=== PATIENT | female | born 1945 | race Caucasian/White ===

== ENCOUNTER 2018-03-21 04:36 | Inpatient (IN) ==
[2018-03-31] MEDS ORDERED: Acetaminophen 325 MG Tablet PO PRN (07:33)
[2018-03-31] MEDS ORDERED: Aluminum/Magnesium/Simethacone Susp 30 ML UDC PO PRN (07:35)
[2018-03-31] MEDS ORDERED: LORazepam 1 MG Tablet PO PRN (07:41)
[2018-03-31] MEDS: Lisinopril 5 MG Tablet PO SCH (09:20)
[2018-03-31] MEDS: Atenolol 25 MG Tablet PO SCH (09:20)
[2018-03-31] MEDS: predniSONE 20 MG Tablet PO SCH (09:20)
--- NOTE | 2018-03-31 17:05 | P.PNPSY ---
Subjective Remarks: Patient was seen and case discussed with nursing. Patient is frustrated with the various activities of the staff here. Per nursing, she was quite entitled this morning yelling at the staff of her minutia. She is eating well and makes an attempt to interact with others during dinner. She remains depressed but denies suicidal or homicidal ideation intent or plan Mental Status Examination Appearance: Appropriate Consciousness: Alert Orientation: x4 Motor Activity: Normal gait Speech: Unremarkable Language: Adequate Fund of Knowledge: Adequate Attention and Concentration: Adequate Memory: Unremarkable Mood: Sad, Irritable Affect: Appropriate Thought Process & Associations: Intact Thought Content: Appropriate Hallucination Type: None Delusion Type: None Suicidal Ideation: No Suicidal Plan: No Suicidal Intention: No Homicidal Ideation: No Homicidal Plan: No Homicidal Intention: No Insight: Poor Judgment: Poor Assessment and Plan - Assessment (1) Adjustment disorder with depressed mood Code(s): F43.21 - Adjustment disorder with depressed mood Status: Acute - Plan Plan: Estimated LOS: [] days Continue current treatment plan Justification for Continued Inpatient Stay: Patient would decompensate in a less restrictive setting
[2018-03-31] MEDS ORDERED: Mirtazapine 15 MG Tablet PO SCH (21:00)
[2018-04-01] MEDS: Lisinopril 5 MG Tablet PO SCH (08:20)
[2018-04-01] MEDS: predniSONE 20 MG Tablet PO SCH (08:21)
[2018-04-01] MEDS: Atenolol 25 MG Tablet PO SCH (08:21)
[2018-04-01 11:07] LABS: ABG Base Excess 2.4 mmol/L (-2-2); ABG PCO2 40 mmHg (38-42); ABG PO2 41 mmHG (61-120)
--- NOTE | 2018-04-01 21:52 | P.DSPSY ---
Psychiatry Discharge Summary Inpatient Psychiatric care?: Yes Advance Directives: No Mental Health Advance Directive: No Health Care Proxy: No - Admission Admission Date: March 22, 2018 10:33 - Admission Diagnosis (1) Adjustment disorder with depressed mood Code(s): F43.21 - Adjustment disorder with depressed mood Brief History: The patient is a 72-year-old woman, domiciled alone in [facility], single , mother of 2 kids, with no prominent psychiatric history, no previous psychiatric hospitalizations, she reports a suicidal attempt a week ago by overdosing in the context of an argument with her daughter, medical history of COPD, stage IV lung cancer, who presents under a Nye act initiated by the [place] [employer]. According to her paperwork, "daughter stated Ms. Gonzalez had a knife and threatened to kill herself. Ms. gonzalez stated she wanted to herself and even mention doing as suicide by copper roller handler printing." Reportedly the patient was initially brought to [facility] but she was felt to be outside of their scope of care. The justification for transferring the patient was that the patient has COPD and uses oxygen at home and has a history of stage IV lung cancer last received chemotherapy 1 month ago. The patient disputes these facts. She reports that she does have a history of stage IV lung cancer but does not remember when her last chemotherapy was, it was much longer than 1 month ago. EMR was reviewed. The case was discussed with the ER team. On my psychiatric evaluation I find a patient that is quite irritable, but redirectable. The patient reports that she has been having thoughts of hanging herself or stabbing herself for about a week and now. She says that she has been having persistent and continues argument with her daughter "who does not give a sh... About me". The patient reports that she has been living alone for long time, with no friends, no family around, "I have been very sick, nobody really cares about me and is okay to me to kill myself". The patient reports continues depression, increase sensitivity to abandonment, frustration, rejection, mood swings, sense of hopelessness, helplessness, worthlessness, and suicidal ideation. She denies visual and auditory hallucinations. Her thought process is quite circumstantial, at some times tangential, she is oriented 3. No agitation or aggressive behavior reported in the ER. She also reports difficulty sleeping at night and poor appetite. Reports occasional use of marijuana, denies all other illegal drugs or alcohol. Tobacco Use In Past 30 Days: No How Often Do You Have a Drink Containing Alcohol: Never Hospital Course: Patient is a 72 y/o woman, single, has 2 children, no formal past psychiatric history, no previous psychiatric admissions, one previous suicide attempt via overdose a week ago, past mental history significant for COPD, stage IV lung cancer who was brought in under Nye act by police after patient had threatened to kill self with knife in the context of argument with daughter which patient was admitted to the inpatient psychiatry unit for further evaluation and management. Patient was admitted to a locked inpatient unit, appropriate precautions were in place throughout hospital stay. Patient was followed by primary medical team during admission. Patient was seen and examined on the unit by psychiatry and was started on mirtazapine and titrated up to 45 mg p.o. at bedtime for depressive symptoms. There was no evidence of any suicidality or homicidality on the inpatient. Patient's behavior improved with the benefit of psychopharmacological treatment. It was determined that discharge back to her [place] was not a safe disposition and unclear whether patient will require hospice services at this time and was awaiting consult with a hospice service that service her [facility] to evaluate patient. In the interim of finalizing appropriate disposition plan patient had a emergency response team activities as patient was having O2 sats in the 30s and had to be transferred to the medical service for further management for likely acute respiratory failure. Patient was discharged to the medical floor with plan to have patient return back to this service once medically stable and cleared. - Discharge Discharge Date: 04/01/18 - Discharge Diagnosis (1) Adjustment disorder with depressed mood Code(s): F43.21 - Adjustment disorder with depressed mood Status: Acute Discharge Disposition: Patient transferred to medical service - Discharge Instructions Discharge Diet: Heart Healthy Diet Activities You Can Perform: Weight Bearing As Tolerat - Discharge Time > 30 minutes Mental Status Examination Appearance: Appropriate Consciousness: Alert Orientation: x4 Motor Activity: Normal gait Speech: Unremarkable Language: Adequate Fund of Knowledge: Adequate Attention and Concentration: Adequate Memory: Unremarkable Mood: Sad Affect: Appropriate Thought Process & Associations: Intact Thought Content: Appropriate Hallucination Type: None Delusion Type: None Suicidal Ideation: No Suicidal Plan: No Suicidal Intention: No Homicidal Ideation: No Homicidal Plan: No Homicidal Intention: No Insight: Fair Judgment: Impulsive Discharge/Advance Care Plan - Results Vital Signs: Last Vital Signs Temp 98.6 F 04/01/18 06:48 Pulse 82 04/01/18 06:48 Resp 16 04/01/18 06:48 BP 150/70 H 04/01/18 09:52 Pulse Ox 69 L 04/01/18 11:00 Lab Results: Abnormal Lab Results 04/01/18 10:50 Puncture Site Right radial Patient Temperature 98.6 O2 Saturation 71 L* ABG pH 7.44 H ABG pCO2 40 ABG pO2 41 L* ABG HCO3 26 ABG O2 Content 11.4 L ABG Base Excess 2.4 H ABG Methemoglobin 1.1 Anthony Test Present Hemoglobin 11.5 L Carboxyhemoglobin 0.9 O2 Delivery Device Ra Inspired O2 21 Critical Value Yes Laboratory Results Hemoglobin A1c 5.1 % (4.3-6.0) 03/23/18 08:01 Triglycerides 111 MG/DL (42-150) 03/23/18 08:01 Cholesterol 149 MG/DL (120-200) 03/23/18 08:01 HDL Cholesterol 71.8 MG/DL (40.0-60.0) H 03/23/18 08:01 Summary of Procedures: None Pending Results: None - Medications Number of antipsychotic medications at discharge: 0 - Discharge Care Plan Goals to Promote Your Health: * To prevent worsening of your condition and complications * To maintain your health at the optimal level Directions to Meet Your Goals: Take your medications as prescribed Follow your dietary instruction Follow activity as directed Keep your appointments as scheduled Take your immunizations and boosters as scheduled If your symptoms worsen call your PCP, if no PCP go to Urgent Care Center or Emergency Room For 23/04 questions related to your inpatient stay or results of tests pending at discharge, please contact Dr. Malcolm Chaudhari MD at Smoking is Dangerous to Your Health. Avoid second hand smoking
== END 2018-04-01 11:20 | disposition short-term general hospital (02) ==
LOC: H250 03-22 10:33 → HIMC 04-01 11:20
PROVIDERS: ADMIT Student in an Organized Health Care Education/Training Program; ATTEND Student in an Organized Health Care Education/Training Program

== ENCOUNTER 2018-04-01 11:22 | Inpatient (IN) ==
[2018-04-04 04:48] VITALS: TEMP 99.1
[2018-04-04 11:04] VITALS: RESP 16
[2018-04-04 17:31] VITALS: BP 141/68; O2SAT 100
[2018-04-04 18:24] VITALS: PULSE 90
== END 2018-04-04 20:00 ==
LOC: HIMC 11:30
PROVIDERS: ADMIT Internal Medicine Critical Care Medicine; ATTEND Internal Medicine Critical Care Medicine

== ENCOUNTER 2018-04-04 20:05 | Inpatient (IN) ==
[2018-04-04] MEDS ORDERED: Aluminum/Magnesium/Simethacone Susp 30 ML UDC PO PRN (20:26)
[2018-04-05 08:42] LABS: Calcium 8.8 mg/dL (8.5-10.1); Carbon Dioxide 20.9 meq/L (21.0-32.0)
[2018-04-05 08:47] LABS: Chol/HDL Ratio 2.91 Ratio
[2018-04-05] MEDS ORDERED: Non-Formulary Drug (Lisinopril [Lisinopril] 2.5 MG) PO SCH (09:00)
[2018-04-05] MEDS ORDERED: Lisinopril 5 MG Tablet PO SCH (09:00)
[2018-04-05] MEDS ORDERED: Atenolol 25 MG Tablet PO SCH (09:00)
[2018-04-05] MEDS ORDERED: Potassium Bicarbonate 25 MEQ Effervescent Tablet PO ONE (09:03)
[2018-04-05] MEDS ORDERED: Potassium Chlor 20 mEq Premix 20 MEQ/100 ML PIGGYBACK IV.SIG SCH (09:34)
[2018-04-05] MEDS ORDERED: Sod Chloride 0.9% Inj 1,000 ML IV.CONT SCH (09:54)
[2018-04-05] MEDS ORDERED: Piperacil/Tazo 4.5 GM Premix 4.5 GM/100 ML BAG IV.SIG SCH (10:00)
--- NOTE | 2018-04-05 10:26 | P.CON ---
History of Present Illness Service: Hospitalist services Consult date: 04/05/18 Primary Care Provider: No Primary Care Physician History of Present Illness: Written by Hellen Lepe, acting as scribe for Dr. Douglass on 04/05/18 at 9: 56 This is a 72-year-old female with past medical history significant for coronary artery disease, COPD, hypertension, dyslipidemia, osteoarthritis and stage IV small cell lung cancer, last chemotherapy treatment approximately 1 month ago who was admitted to inpatient psychiatry recent suicidal ideations. On 04/01/18, [facility] was called and the patient was found to be cyanotic with O2 sats at 30% . Patient was admitted to critical care service was emergently intubated. After intubation, CODE BLUE 5 minutes with return to spontaneous circulation. She was treated with levofed for pressor support for borderline blood pressures. On 04/03/18, she was able to be weaned off the vasopressors and was extubated. Patient was started on IV Zosyn and vancomycin for concern for possible aspiration pneumonia after failing the bedside swallow evaluation. Patient was evaluated by speech therapy who recommended pured diet with thin liquids. On 04/02, CXR showed lungs are clear with interval resolution of right lower lung infiltrate. She underwent echocardiogram revealing EF 60-65%, moderate to severe pulmonary hypertension and a small loculated pericardial effusion without pretamponade physiology. Patient was admitted to inpatient med psych on 04/04/2018 and hospitalist services have been consulted to assist with ongoing medical management. Patient seen and examined. Patient complains of shortness of breath. She also reports cough with whitish sputum production. She denies any fever or chills. She has complaints of chest pain. She denies any nausea, vomiting or abdominal pain. She denies any diarrhea or constipation. Review of Systems All other systems reviewed negative except as stated in HPI PMFSH - History History Provided By: Patient - Medical History Medical History: Medical History (Last Reviewed 04/04/18 @ 10:50 by Earline Tompkins) Rheumatoid arthritis (Acute) High cholesterol (Acute) Hypertension (Acute) Coronary artery disease (Acute) Lung cancer (Acute) COPD (chronic obstructive pulmonary disease) (Acute) - Surgical History Surgical History: Surgical History (Last Reviewed 04/04/18 @ 09:10 by Kandi Gomes) No history of previous surgery - Family History Family History: Family History (Last Updated 04/01/18 @ 14:28 by BERNARD Almeida) Mother Family history of diabetes mellitus Coronary artery disease - Tobacco History Second Hand Smoke Exposure: No Tobacco Use In Past 30 Days: No Smoking Status: Unknown if ever smoked Tobacco Type: Cigarettes Packs Per Day: 1 Cigarettes Per Day: 1 Years Smoked: 2 years: 100 - Alcohol History How Often Do You Have a Drink Containing Alcohol: Unable to Obtain - Substance Use History Substance History: Active Abuse - Travel History History of Recent Travel: No Medications and Allergies Active Medications: Active Medications Al Hydrox/Mg Hydrox/Simethicone (Mag-Al Plus Susp Liq) 30 ml PO Q6H PRN PRN Reason: DYSPEPSIA Al Hydroxide/Mg Hydroxide (Milk Of Magnesia Liq) 30 ml PO DAILY PRN PRN Reason: CONSTIPATION Albuterol (Duoneb Neb (Prn)) 1 ampul NEB Q4HR NEB PRN PRN Reason: DYSPNEA Albuterol (Duoneb Neb (Helio)) 1 ampul NEB Q4HR NEB HELIO Aspirin (Aspirin Chew) 81 mg PO DAILY HELIO Atenolol (Tenormin) 12.5 mg PO DAILY [facility] Atorvastatin Calcium (Lipitor) 10 mg PO HS HELIO Last Admin: 04/04/18 21:25 Dose: 10 mg Enalaprilat (Vasotec Inj) 1.25 mg IV.PUSH Q6H PRN PRN Reason: SBP>180, DBP>95 Potassium Chloride (Kcl 20 Meq Premix Inj) 20 meq in 100 mls @ 50 mls/hr IV.SIG Q2H HELIO Stop: 04/05/18 13:33 Piperacillin/Tazobactam/Dextrose (Zosyn 4.5 Gm Premix) 4.5 gm in 100 mls @ 200 mls/hr IV.SIG Q6H HELIO Sodium Chloride (Ns Inj) 1,000 mls @ 42 mls/hr IV.CONT .[id number] HELIO Potassium Chloride/Sodium Chloride (Ns + Kcl 20 Meq Inj) 1,000 mls @ 42 mls/hr IV.CONT .[id number] HELIO Lisinopril (Prinivil) 2.5 mg PO DAILY HELIO Allergies Allergy/AdvReac Type Severity Reaction Status Date / Time Sulfa (Sulfonamide Allergy Severe Anaphylaxis Verified 03/21/18 05:08 Antibiotics) BAKED BEANS AdvReac Intermediate Nausea/Vomi Uncoded 03/21/18 05:07 ting Home Medications Medication Instructions Recorded Confirmed Type aspirin 81 mg PO DAILY 03/30/18 03/30/18 History atenolol 12.5 mg PO DAILY 03/30/18 03/30/18 History atorvastatin 10 mg PO HS 03/30/18 03/30/18 History lisinopril 2.5 mg PO DAILY 03/30/18 03/30/18 History Physical Exam Vital signs: Vital Signs 04/04/18 20:27 04/05/18 06:14 Temperature 97.5 F L 98 F Pulse Rate 95 H 89 Respiratory Rate 18 16 Blood Pressure 141/64 H 134/70 Pulse Oximetry 98 Intake & Output 04/04/18 04/05/18 04/05/18 18:59 06:59 18:59 Intake Total 240 / 240 120 / 120 Output Total 0 / 0 Balance 240 / 240 120 / 120 Weight 52 kg Intake: Oral 240 / 240 120 / 120 Output: Urine 0 / 0 Other: Weight On Admission 52 kg Narrative: GENERAL: This is a thin cachetic appearing female, in mild respiratory distress. Awake and alert. SKIN: Warm. No generalized rash. Port right anterior chest wall. HEAD: Atraumatic. Normocephalic. EYES: Pupils equal and round. No scleral icterus. No injection or drainage. ENT: No nasal bleeding or discharge. Mucous membranes pink and moist. NECK: Trachea midline. CARDIOVASCULAR: Regular rate and rhythm. RESPIRATORY: Fair air entry. +Coarse rhonchi bilaterally. Bibasilar crackles noted. GASTROINTESTINAL: Abdomen soft, non-tender, nondistended. Hepatic and splenic margins not palpable. GENITOURINARY: Cohen in place with clear yellow urine in bag MUSCULOSKELETAL: Extremities without clubbing or cyanosis. + 2+ pitting edema RUE. 1+ pitting edema BLEs. No obvious deformities. NEUROLOGICAL: Awake and alert. No obvious cranial nerve deficits. Motor grossly within normal limits. Able to move all extremities spontaneously. No focal neurologic finding appreciated. Normal speech. PSYCHIATRIC: Calm and cooperative. Assessment and Plan - Plan Hypoxic respiratory failure, resolved Small cell lung cancer COPD exacerbation Extubated 04/03 Give IV Solu-Medrol 125mg x 1 dose Obtain CXR Continue on supplemental oxygen to maintain O2 sats greater than 90% DuoNeb scheduled every 4 and albuterol every 2 hours as needed Continue to monitor respiratory status Chest pain Dyspnea Hx of CPR 7/2 Previous negative cardiac workup Obtain serial cardiac enzymes and EKG Suspected CHF exacerbation, appears fluid overloaded on exam Echocardiogram revealing EF 60-65%, moderate to severe pulmonary hypertension and a small loculated pericardial effusion without pretamponade physiology. Give IV Lasix 40mg x 1 dose Monitor I&Os Continue on BB and ACEI RUE edema Bilateral lower extremity edema Suspect secondary to fluid overload Obtain Doppler ultrasound right upper extremity and bilateral lower extremities to r/o DVT Acute dysphagia Patient evaluated by speech therapy recommending pure diet with thin liquids Diet or changed in system Continue with speech therapy Hypertension, chronic, controlled Continue on atenolol 12.5 mg daily and Lisinopril 2.5mg daily Vasotec IV as needed Continue to monitor BP and adjust treatment accordingly Hypokalemia Obtain mag level Give potassium po repletion Repeat BMP in a.m. to monitor response Anemia Hemoglobin and hematocrit trending down No evidence of active bleeding Repeat CBC Low TSH obtain free T4 and total T3 Depression Suicidal ideation Management per psychiatric team Patient is DNR Palliative care following at the main, will reconsult, appreciate assistance DVT prophylaxis Bilateral SCD/HARRY hou 35 minutes of critical care time was spent on patient Discussed Condition With: patient and nursing staff
[2018-04-05] MEDS ORDERED: MethylPREDNISolone Sod Succinate Inj 125 MG/2 ML Vial IV.PUSH ONE (10:48)
--- NOTE | 2018-04-05 10:55 | XR ---
EXAM DATE: 04/05/2018 10:37 AM EDT AGE/SEX: 72 years / Female INDICATIONS: Infiltrate. CLINICAL DATA: This is the patient's subsequent encounter. Patient reports that signs and symptoms h ave been present for 4 - 6 days and indicates a pain score of 0/10. MEDICAL/SURGICAL HISTORY: . Carcinoma, colon. . Port placement. COMPARISON: [facility], CHEST 1V SINGLE AP, 04/02/2018. . FINDINGS: The endotracheal tube and NG tube have been removed. There is a right-sided Hvaxyn-n-Uwbt remaining i n place. There is no pneumothorax. There is a patchy infiltrate in the right lung base. The left lung is grossly clear. Heart size is within normal limits and stable. The bony structures are stable. CONCLUSION: Patchy infiltrate in the right lower lung. Electronically signed by: Denny Wade MD 04/05/2018 10:54 AM EDT
[2018-04-05] MEDS ORDERED: Potassium Chloride 25 MEQ Effervescent Tablet PO ONE (10:58)
[2018-04-05 11:06] LABS: Baso % (Auto) 0.1 % (0.0-2.0); Eos % (Auto) 0.1 % (0.0-4.0); Hematocrit 28.5 % (35.0-46.0); Hemoglobin 9.3 gm/dL (11.6-15.3); Lymph # (Auto) 0.9 th/mm3 (1.0-4.8); Mean Corpuscular HGB Conc 32.6 % (32.0-36.0); Mean Platelet Volume 7.2 fL (7.0-11.0); Mono # (Auto) 0.8 th/mm3 (0.0-0.9); Mono % (Auto) 6.3 % (0.0-8.0); Neut # (Auto) 10.7 th/mm3 (1.8-7.7); Neut % (Auto) 86.5 % (16.0-70.0); Platelet Count 243 th/mm3 (150-450); White Blood Count 12.4 th/mm3 (4.0-11.0)
--- NOTE | 2018-04-05 12:23 | US ---
EXAM DATE: 04/05/2018 12:18 PM EDT AGE/SEX: 72 years / Female INDICATIONS: Bilateral leg swelling. CLINICAL DATA: This is the patient's initial encounter. Patient reports that signs and symptoms have been present for 1 day and indicates a pain score of 0/10. MEDICAL/SURGICAL HISTORY: Chronic obstructive pulmonary disease. Hypercholesterolemia. Hypert ension. Coronary artery stent. Lung cancer. Rheumatoid arthritis. . Port placement. COMPARISON: No prior exams available for comparison. TECHNIQUE: Venous ultrasound of both lower extremities was performed from the inguinal ligament to t he proximal calf. Real-time, color Doppler and spectral tracing, compression and augmentation techni ques were used. FINDINGS: Right Leg: There is occlusive peroneal vein thrombosis. Posterior tibial vein, popliteal vein, femor al vein are patent. Left Leg: There is occlusive peroneal vein thrombosis. Posterior tibial vein, popliteal vein, femora l vein are patent. Other: None. CONCLUSION: 1. Bilateral occlusive peroneal vein thrombosis in the legs bilaterally. No evidence of thrombosed v eins identified. Electronically signed by: Isma Montero MD 04/05/2018 12:21 PM EDT
--- NOTE | 2018-04-05 12:30 | US ---
EXAM DATE: 04/05/2018 12:16 PM EDT AGE/SEX: 72 years / Female INDICATIONS: Right arm swelling. CLINICAL DATA: This is the patient's initial encounter. Patient reports that signs and symptoms have been present for 1 day and indicates a pain score of 5/10. MEDICAL/SURGICAL HISTORY: Chronic obstructive pulmonary disease. Hypercholesterolemia. Hypert ension. Coronary artery stent. Lung cancer. Rheumatoid arthritis. . Port placement. COMPARISON: No prior exams available for comparison. FINDINGS: There is extensive deep venous thrombosis involving the right subclavian vein, axillary ve in, brachial vein, basilic vein and vein. Internal jugular vein is patent. Other: None. CONCLUSION: 1. Positive for extensive deep venous thrombosis in the right upper extremity Electronically signed by: Isma Montero MD 04/05/2018 12:29 PM EDT
[2018-04-05] MEDS ORDERED: Heparin 10,000 UNITS/10 ML Vial (for IV use) IV.PUSH STA (12:38)
[2018-04-05 12:41] LABS: Hemoglobin A1c 5.4 % (4.3-6.0)
--- NOTE | 2018-04-05 15:32 | P.PNPAL ---
Palliative care continues to follow along with Ms. Gonzalez. Consulted to continue to follow along during this admission. Palliative care requested accurint report to locate patient's son, Garland Gonzalez. Last known in the [place] area. Accurint results produced the following results: Garland Gonzalez, . Number rings to an ux design manager office. [employer] and social media searches unable to identify match. Per [place] [employer], in absence of written advanced directives, medical proxy decision making would fall to patient's 2 children who are readily available. Unable to locate patient's son, Garland. Daughter Tong is available and willing to serve in this role. Spoke with psychiatry who states patient went to [facility] and her daughter, Tong, was appointed by copy lathe tender as health care decision maker. Important Contacts Tong Gonzalez, daughter/HCP: [phone] Palliative care will continue to follow along throughout hospitalization.
--- NOTE | 2018-04-05 15:36 | CT ---
EXAM DATE: 04/05/2018 3:23 PM EDT AGE/SEX: 72 years / Female INDICATIONS: Shortness of breath. CLINICAL DATA: This is the patient's initial encounter. Patient reports that signs and symptoms have been present for 1 day and indicates a pain score of 0/10. MEDICAL/SURGICAL HISTORY: Carcinoma, lung. Deep venous thrombosis. Chronic obstructive pulmonary disease. Hypertension. None. RADIATION DOSE: 8.93 CTDI (mGy) COMPARISON: COMP, PET/CT WHOLE BODY, 09/19/2017. . TECHNIQUE: Volumetric scanning was performed using a multi-row detector CT scanner during bolus infu maynor of 73 ml Omnipaque 350 (iohexol) nonionic water-soluble contrast as a single exam dose. The paul a was post processed with a variety of visualization algorithms including full volume maximum intensi ty projection and sliding thin slab reformation. Using automated exposure control and adjustment of the mA and/or kV according to patient size, radiation dose was kept as low as reasonably achievable t o obtain optimal diagnostic quality images. DICOM format image data is available electronically for review and comparison. FINDINGS: Pulmonary Arteries: There are filling defects in the left lower lobe segmental vessels. No definite PE on the right side. Lung: Mild posterior asthma or atelectasis bilaterally associated with small effusions Effusion: Small bilateral Mediastinum: Prominent soft tissue density in the AP window and subcarinal region worrisome for tasia opathy. No recent comparison CTs immediately available. Other: The axilla is unremarkable. CONCLUSION: 1. Left lower lobe pulmonary embolism. 2. Small bilateral effusions with adjacent compressive atelectasis. 3. Mediastinal adenopathy. Electronically signed by: Magdy Guillaume MD 04/05/2018 3:35 PM EDT
--- NOTE | 2018-04-05 15:46 | P.PNPAL ---
Reason for Visit Reason for visit: Patient seen today for follow-up of depression, agitation, dyspnea. Subjective Subjective/Interval History: Patient transferred back to medical psychiatry after stabilization from hypoxic episode. Palliative care consulted to continue assistance with symptom management. Patient initially admitted to inpatient psychiatry secondary to suicidal ideation, depression and agitation. Patient remains with flat affect, minimal engagement and continues to appear depressed. She is not currently on any psychotropics or antidepressants. She remains under a suicide watch and a Nye act while undergoing psychiatric evaluation. She continues to appear guarded however not agitated at this time. During previous visits she had been seen with abrupt mood changes from calm and cooperative to agitated, combative and hostile within a 10 minute without any obvious stimuli. In discussion with her daughter last evening, the daughter mentioned recent brain surgery done at [facility] "for cancer". The daughter is unable to provide any further information, however is willing to sign medical record release forms to obtain the records from both [facility] and [facility] with the patient has previously been seen. Those records have been requested. Her agitation is concerning for brain metastasis as she has a known history of stage IV small cell lung cancer with last known treatment in July 2017. She remains dyspneic with audibly rhonchorous breath sounds. She has an intermittent wet cough. She does complain of some mild dyspnea which has continued after DuoNeb treatment. She continues to have some wheezing. She presented as an aspiration risk secondary to recent intubation, weakness and confusion. She had initially failed bedside swallow evaluation but upon speech therapy evaluation she was cleared for pured diet with thin liquids. She was reevaluated by speech therapy today and cleared for mechanical soft, chopped meat with gravy and thin liquids. Venous Doppler showed occlusive peroneal vein thrombosis bilaterally with patent posterior tibial, popliteal and femoral veins and extensive deep vein thrombosis in the right upper extremity. . Family/Friend Interactions: Spoke with daughterTong, at bedside today and executed a [place] DNR and the above-mentioned request for medical records. She remains supportive of her mother, however but states she cannot take her back home due to the burden of her care. She did recognize that given her mother's terminal diagnosis of stage IV lung cancer as well as her other medical comorbidities and progressive deterioration that she would not benefit from aggressive resuscitation should her condition continued to decline but would instead prefer comfort measures to improve her mother's quality of life and not prolong her suffering. I did discuss this with Dr. Chaudhari who agrees that the patient will benefit from placement once stabilized. Case management is assisting with that process. . Advance Directives Living Will: Never completed Health Care Surrogate: Never completed Durable Power of Team Lead: Never completed Documented care wishes:: Patient has been made a DO NOT RESUSCITATE status by her daughter, who is the legal proxy decision-maker. . Significant change in goals:: Patient's daughter, who is the legal proxy decision-maker, Objective Vital Signs: Vital Signs 04/04/18 20:27 04/05/18 06:14 04/05/18 10:41 Temperature 97.5 F L 98 F Pulse Rate 95 H 89 89 Respiratory Rate 18 16 16 Blood Pressure 141/64 H 134/70 Pulse Oximetry 98 94 L 04/05/18 12:29 Temperature 97.7 F Pulse Rate 101 H Respiratory Rate 24 Blood Pressure 136/71 Pulse Oximetry 96 Intake & Output 04/04/18 04/05/18 04/05/18 18:59 06:59 18:59 Intake Total 240 / 240 120 / 120 Output Total 0 / 0 Balance 240 / 240 120 / 120 Weight 114 lb 10.246 oz Intake: Oral 240 / 240 120 / 120 Output: Urine 0 / 0 Other: Weight On Admission 114 lb 10.246 oz Physical Exam: Physical Exam: CONSTITUTIONAL/GENERAL: This is an adequately nourished patient, awake, in no apparent distress. TUBES/LINES/DRAINS: PIV SKIN: No jaundice, rashes, or lesions. Ecchymoses on upper extremities. No wounds seen anteriorly. Skin temperature appropriate. Not diaphoretic. HEAD: Atraumatic. Normocephalic. EYES: Pupils equal and round and reactive. Extraocular motions intact. No scleral icterus. No injection or drainage. Fundi not examined. ENT: Hearing grossly normal. Nose without bleeding or purulent drainage. Oral mucosa dry, pink. Poor dentition. NECK: Trachea midline. Supple, nontender. CARDIOVASCULAR: Regular rate and rhythm without murmurs, gallops, or rubs. No JVD. Peripheral pulses symmetric. RESPIRATORY/CHEST: Wheezes and rhonchi throughout all lung calvo. Symmetric expansion, eupneic. GASTROINTESTINAL: Abdomen distended, firm. Unable to palpate for organomegaly due to abdominal firmness and distention. No guarding. Bowel sounds present. GENITOURINARY: Without palpable bladder distension. MUSCULOSKELETAL: Extremities without clubbing, cyanosis. 2+ right upper extremity edema, 1-2+ lower extremity edema bilaterally. No joint tenderness or effusion noted. No calf tenderness. No mottling or clubbing. LYMPHATICS: No palpable cervical or supraclavicular adenopathy. NEUROLOGICAL: Alert, oriented to self, place. Speech soft, clear. PSYCHIATRIC: Remains under Nye act at this time. Guarded, flat affect. Under suicide watch. . Diagnostic Tests Laboratory: Laboratory Results - last 72 hr 04/04/18 04/05/18 04/05/18 21:24 07:54 07:54 WBC Corrected WBC RBC Hgb Hct MCV MCH MCHC RDW Plt Count MPV Neut % (Auto) Lymph % (Auto) [place] % (Auto) Eos % (Auto) Baso % (Auto) Neut # (Auto) Lymph # (Auto) [place] # (Auto) Eos # (Auto) Baso # (Auto) WBC Differential Differential Comment Hematology Comments Sodium 147 H Potassium 3.0 L Chloride 113 H Carbon Dioxide 20.9 L Anion Gap 13 BUN 25 H Creatinine 0.85 Estimated GFR 66 L POC Glucose 97 Random Glucose 88 D Hemoglobin A1c 5.4 Calcium 8.8 Magnesium Troponin I B-Natriuretic Peptide Triglycerides 150 Cholesterol 102 L LDL Cholesterol, Calc 37 HDL Cholesterol 35.0 L Cholesterol/HDL Ratio 2.91 Free T4 Total T3 04/05/18 04/05/18 04/05/18 10:35 10:35 11:16 WBC 12.4 H Corrected WBC RBC 3.00 L Hgb 9.3 L Hct 28.5 L MCV 95.0 MCH 31.0 MCHC 32.6 RDW 14.0 Plt Count 243 MPV 7.2 Neut % (Auto) 86.5 H Lymph % (Auto) 7.0 L [place] % (Auto) 6.3 Eos % (Auto) 0.1 Baso % (Auto) 0.1 Neut # (Auto) 10.7 H Lymph # (Auto) 0.9 L [place] # (Auto) 0.8 Eos # (Auto) 0.0 Baso # (Auto) 0.0 WBC Differential . Differential Comment Auto diff final Hematology Comments Sodium Potassium Chloride Carbon Dioxide Anion Gap BUN Creatinine Estimated GFR POC Glucose 124 H Random Glucose Hemoglobin A1c Calcium Magnesium 1.7 Troponin I B-Natriuretic Peptide Triglycerides Cholesterol LDL Cholesterol, Calc HDL Cholesterol Cholesterol/HDL Ratio Free T4 Total T3 04/05/18 04/05/18 04/05/18 12:53 12:53 12:53 WBC Corrected WBC RBC Hgb Hct MCV MCH MCHC RDW Plt Count MPV Neut % (Auto) Lymph % (Auto) [place] % (Auto) Eos % (Auto) Baso % (Auto) Neut # (Auto) Lymph # (Auto) [place] # (Auto) Eos # (Auto) Baso # (Auto) WBC Differential Differential Comment Hematology Comments Sodium Potassium Chloride Carbon Dioxide Anion Gap BUN Creatinine Estimated GFR POC Glucose Random Glucose Hemoglobin A1c Calcium Magnesium Troponin I 0.06 H D B-Natriuretic Peptide 103 H Triglycerides Cholesterol LDL Cholesterol, Calc HDL Cholesterol Cholesterol/HDL Ratio Free T4 0.92 Total T3 04/05/18 04/05/18 12:53 12:53 WBC Cancelled Corrected WBC Cancelled RBC Cancelled Hgb Cancelled Hct Cancelled MCV Cancelled MCH Cancelled MCHC Cancelled RDW Cancelled Plt Count Cancelled MPV Cancelled Neut % (Auto) Lymph % (Auto) [place] % (Auto) Eos % (Auto) Baso % (Auto) Neut # (Auto) Lymph # (Auto) [place] # (Auto) Eos # (Auto) Baso # (Auto) WBC Differential Differential Comment Hematology Comments Cancelled Sodium Potassium Chloride Carbon Dioxide Anion Gap BUN Creatinine Estimated GFR POC Glucose Random Glucose Hemoglobin A1c Calcium Magnesium Troponin I B-Natriuretic Peptide Triglycerides Cholesterol LDL Cholesterol, Calc HDL Cholesterol Cholesterol/HDL Ratio Free T4 Total T3 73 Result Diagrams: 04/05/18 10:35 04/05/18 07:54 Imaging: ITS Impressions Chest X-Ray 04/05/18 00:00 CONCLUSION: Patchy infiltrate in the right lower lung. Venous Doppler Study 04/05/18 00:00 CONCLUSION: 1. Bilateral occlusive peroneal vein thrombosis in the legs bilaterally. No evidence of thrombosed veins identified. Venous Doppler Study 04/05/18 00:00 CONCLUSION: 1. Positive for extensive deep venous thrombosis in the right upper extremity Assessment and Plan Pertinent Non-Medical Issues: Psychosocial: Spiritual: Legal: Ethical issues impacting care: Important Contacts: Daughter: Tong Sister: Keyonna Ha Prognosis: Her prognosis is guarded. While she has stage IV lung cancer and oxygen dependent COPD she is at elevated risk for respiratory compromise, complications and decline. She has now been diagnosed with right upper extremity DVT and bilateral lower extremity peroneal vein thrombosis. She would be at elevated risk of a pulmonary embolus due to her history of cancer. Her daughter reports a recent "craniotomy" at [facility] and those records have been requested. There is suspicion that she may have brain metastasis which could be contributing to her agitation and labile behavior. Her last chemotherapy was given July 06, 2017. She sees Dr. Harris at [facility]. As her disease is terminal, being stage IV, she is likely to continue to have complications, decline and recurrent hospitalizations, if indeed, she survives this hospitalization. Code Status: No Code DNR Plan: PLAN: Legal decision maker: At this time the patient is not capacitated to make her own decisions. She is currently under a Nye act. Per [place] statutes as she is , it would be the majority of her adult children designated as decision-makers. I have spoken with her daughter, Tong, who is readily available and willing to serve. She also has a son, Garland, who at this time cannot be contacted. [employer] report returned no usable contact information. All available numbers have been tried and are either not working or have been reassigned. As we are unable to contact the son after do diligence, Tong will act as the healthcare proxy. Goals: Comfort oriented. CODE STATUS: DO NOT RESUSCITATE SYMPTOMS: * Depression: She was admitted to psychiatry under a Nye act secondary to suicidal ideation and suicide attempts. His status was continued by Nye act court prior to her decompensation. Medication was initiated but as of 03/30, it was the opinion of psychiatry that she would decompensate in a less restrictive environment than the locked psychiatry unit. After an acute hypoxic decline necessitating intubation, she has been medically stabilized and readmitted to medical psychiatry where she remains under a suicide watch and under Nye act. * Agitation: She is exhibiting no overt agitation today, but remains guarded and withdrawn. There is some concern that her abrupt agitation episode may have been as a result of some brain metastasis from her stage IV small cell lung cancer and records have been requested from [facility] and [facility] where patient was recently seen. She is reported to have had a craniotomy at [facility] with the impetus and results for that are not known at this time. Pending receipt of the records. * Dyspnea: She remains on nasal cannula. She has now been diagnosed with bilateral lower extremity peroneal vein thrombus and extensive right upper extremity DVT, consistent with her history of cancer. She is at elevated risk for pulmonary embolus. Daughter states that it would be more consistent with the patient's wishes if she experiences another respiratory decline, to receive medication for comfort than to undergo reintubation. Palliative care will continue to follow the patient during hospital course as condition evolves, to assist patient/decision-maker with understanding of their medical conditions, weighing benefits/burdens of treatment options, for clarification of goals of treatment. Additionally will assist with any symptoms of palliative concern. . Attestation Attestation: To help prompt me to consider important information that might be impacting today's encounter and assessment, information from prior notes written by myself or my colleagues may have been "brought forward" into today's note. My signature on this note, however, is an attestation that I personally performed the exam, history, and/or decision-making noted today, and, unless otherwise indicated, the interactions with patient, family, and staff as well as the review of records all occurred today. I also attest that the listed assessment and stated plan reflect my best clinical judgment today based on the combination of historical information, prior notes, and today's exam/ interactions. When time spent is documented, it refers only to time spent today by the signer, or if indicated, combined time spent today by collaborating physician/nurse practitioner.
[2018-04-05] MEDS ORDERED: Heparin Drip 25,000 UNIT/250 ML BAG IV.CONT PRN (16:20)
--- NOTE | 2018-04-05 16:52 | P.PNPSY ---
Subjective Remarks: Patient is a 72 y/o woman, single, has 2 children, no formal past psychiatric history, no previous psychiatric admissions, one previous suicide attempt via overdose a week ago, past mental history significant for COPD, stage IV lung cancer who was brought in under Nye act by police after patient had threatened to kill self with knife in the context of argument with daughter which patient was admitted to the inpatient psychiatry unit for further evaluation and management. Patient was followed by primary medical team during admission. Patient was seen and examined on the unit by psychiatry and was started on mirtazapine and titrated up to 45 mg p.o. at bedtime for depressive symptoms prior to recent discharge to medical service. During admission patient had a emergency response team activated as patient was having O2 sats in the 30s and had to be transferred to the medical service for further management for likely acute respiratory failure. Patient was discharged to the medical floor with plan to have patient return back to this service once medically stable and cleared. Patient was found to have had hypoxic respiratory failure which required intubation, suspected CHF exacerbation and was eventually extubated and transferred back to the medical psychiatry unit for further psychiatric evaluation. Patient was found lying hospital bed with nasal cannula and sitter at bedside. Patient states that he has been feeling "better" than recent days, denying any depressed mood at this time, denying any suicidal homicidal ideation. Patient states that she just looks forward to feeling better. Review of Systems All other systems reviewed negative except as stated in HPI Mental Status Examination Appearance: Appropriate Consciousness: Alert Orientation: Person, Place, Date/Time Speech: Other (Low volume) Language: Adequate Fund of Knowledge: Inadequate Attention and Concentration: Adequate Memory: Unremarkable Mood: Appropriate Affect: Appropriate Thought Process & Associations: Intact, Goal directed, Linear Thought Content: Appropriate Hallucination Type: None Delusion Type: None Suicidal Ideation: No Suicidal Plan: No Suicidal Intention: No Homicidal Ideation: No Homicidal Plan: No Homicidal Intention: No Insight: Fair Judgment: Impulsive Assessment and Plan - Assessment (1) Adjustment disorder with depressed mood Code(s): F43.21 - Adjustment disorder with depressed mood Status: Acute - Plan Plan: Estimated LOS: [] days Patient this time endorsing any depressive or mood symptoms, denying any perceptional disturbances or delusions. Patient may resume mirtazapine at 50 mg p.o. at bedtime for depression as maintenance treatment. Patient this time no longer meets criteria for inpatient psychiatric hospitalization and is clear for disposition recommendations by primary medical team concerning hospice services. Patient after evaluation by medical team requires transfer back to medical services for further medical management. Justification for Continued Inpatient Stay: At risk of further decompensation a lower level of care.
[2018-04-05 17:04] LABS: Activated Partial Thrombo Time 52.7 sec (24.3-30.1); INR 1.1 Ratio; Prothrombin Time 11.3 sec (9.8-11.6)
[2018-04-05 18:02] LABS: ABG Base Excess -0.2 mmol/L (-2-2); ABG PCO2 33 mmHg (38-42); ABG PO2 105 mmHG (61-120)
[2018-04-05] MEDS ORDERED: MethylPREDNISolone Sod Succinate Inj 40 MG/ML Vial IV.PUSH SCH (19:00)
--- NOTE | 2018-04-06 10:35 | ECG ---
Date Performed: 04/05/2018 Time Performed: 16:24:54 PTAGE: 72 years EKG: SINUS TACHYCARDIA NONSPECIFIC T WAVE ABNORMALITY ABNORMAL RHYTHM ECG PREVIOUS TRACING : 04/05/2018 12.43 No significant change from previous tracing noted. DOCTOR: Theo Dove Interpretating Date/Time 04/06/2018 10:34:14
--- NOTE | 2018-04-06 10:44 | ECG ---
Date Performed: 04/05/2018 Time Performed: 12:43:26 PTAGE: 72 years EKG: Sinus rhythm WITH OCCASIONAL SUPRAVENTRICULAR PREMATURE COMPLEXES NONSPECIFIC T WAVE ABNORMALITY BORDERLINE ECG PREVIOUS TRACING : 04/01/2018 13.51 No significant change from previous tracing noted. DOCTOR: Theo Dove Interpretating Date/Time 04/06/2018 10:43:49
== END 2018-04-05 18:36 | disposition short-term general hospital (02) ==
LOC: H4EA 20:05
PROVIDERS: ADMIT Student in an Organized Health Care Education/Training Program; ATTEND Student in an Organized Health Care Education/Training Program

== ENCOUNTER 2018-04-05 19:12 | Inpatient (IN) ==
[2018-04-05] MEDS ORDERED: Bisacodyl 10 MG Supp RECTAL PRN (20:34)
[2018-04-05] MEDS ORDERED: Acetaminophen 325 MG Tablet PO PRN (20:34)
[2018-04-05] MEDS ORDERED: Heparin Drip 25,000 UNIT/250 ML BAG IV.CONT PRN ×2 (20:41→20:43)
[2018-04-05] MEDS ORDERED: Heparin 10,000 UNITS/10 ML Vial (for IV use) IV.PUSH STA (20:43)
[2018-04-05] MEDS ORDERED: Temazepam 15 MG Capsule PO PRN (20:46)
[2018-04-05] MEDS ORDERED: Dextrose 50% in Water 50 ML Vial IV.PUSH PRN (20:47)
[2018-04-05] MEDS: Senna/Docusate Sodium 8.6/50 MG Tablet PO SCH (21:33)
[2018-04-05] MEDS: MethylPREDNISolone Sod Succinate Inj 125 MG/2 ML Vial IV.PUSH SCH (21:33)
[2018-04-05] MEDS: Famotidine 20 MG Tablet PO SCH (21:33)
[2018-04-05] MEDS: Insulin NovoLOG Aspart Correctional Sugar Inj SQ SCH (22:37)
[2018-04-05] MEDS: Piperacil/Tazo 4.5 GM Premix 4.5 GM/100 ML BAG IV.SIG SCH (22:37)
[2018-04-05 23:28] LABS: Hematocrit 27.7 % (35.0-46.0); Hemoglobin 9.4 gm/dL (11.6-15.3); Mean Corpuscular Hemoglobin 31.7 pg (27.0-34.0); Mean Corpuscular Volume 93.3 fL (80.0-100.0); Mean Platelet Volume 7.4 fL (7.0-11.0); Platelet Count 208 th/mm3 (150-450); Red Blood Count 2.97 mil/mm3 (4.00-5.30); Red Cell Distribution Width 13.8 % (11.6-17.2)
[2018-04-05 23:44] LABS: INR 1.2 Ratio; Prothrombin Time 11.8 sec (9.8-11.6)
[2018-04-05 23:56] LABS: Activated Partial Thrombo Time 148.7 sec (24.3-30.1)
[2018-04-06] MEDS ORDERED: Chlorhexidine Gluconate 2% 1 Pack (2 Cloths) TOPICAL SCH (04:00)
[2018-04-06] MEDS ORDERED: Chlorhexidine Gluconate 2% 1 Pack (2 Cloths) TOPICAL PRN (04:00)
[2018-04-06] MEDS: MethylPREDNISolone Sod Succinate Inj 125 MG/2 ML Vial IV.PUSH SCH ×4 (04:17→21:10)
[2018-04-06] MEDS: Piperacil/Tazo 4.5 GM Premix 4.5 GM/100 ML BAG IV.SIG SCH ×4 (04:18→21:11)
[2018-04-06 05:06] LABS: Baso % (Auto) 0.1 % (0.0-2.0); Hematocrit 27.9 % (35.0-46.0); Hemoglobin 9.4 gm/dL (11.6-15.3); Lymph # (Auto) 0.3 th/mm3 (1.0-4.8); Lymph % (Auto) 4.8 % (9.0-44.0); Mean Corpuscular HGB Conc 33.5 % (32.0-36.0); Mean Corpuscular Hemoglobin 31.2 pg (27.0-34.0); Mean Corpuscular Volume 93.1 fL (80.0-100.0); Mean Platelet Volume 7.5 fL (7.0-11.0); Mono # (Auto) 0.1 th/mm3 (0.0-0.9); Mono % (Auto) 1.8 % (0.0-8.0); Neut # (Auto) 6.2 th/mm3 (1.8-7.7); Neut % (Auto) 93.3 % (16.0-70.0); Platelet Count 197 th/mm3 (150-450); White Blood Count 6.7 th/mm3 (4.0-11.0)
[2018-04-06 05:14] LABS: Alanine Aminotransferase 86 U/L (10-53); Albumin 1.8 g/dL (3.4-5.0); Alkaline Phosphatase 124 U/L (45-117); Anion Gap 11 meq/L (5-15); Aspartate Aminotransferase 51 U/L (15-37); Blood Urea Nitrogen 27 mg/dL (7-18); Calcium 9.2 mg/dL (8.5-10.1); Carbon Dioxide 26.2 meq/L (21.0-32.0); Chloride 110 meq/L (98-107); Glomerular Filtration Rate 58 mL/min (>89); Glucose,Random 183 mg/dL (74-106); Sodium 147 meq/L (136-145); Total Protein 5.9 g/dL (6.4-8.2)
[2018-04-06 05:18] LABS: Potassium 2.4 meq/L (3.5-5.1)
[2018-04-06] MEDS: Insulin NovoLOG Aspart Correctional Sugar Inj SQ SCH ×2 (08:00→22:26)
[2018-04-06] MEDS: Senna/Docusate Sodium 8.6/50 MG Tablet PO SCH ×2 (08:38→21:11)
[2018-04-06] MEDS: Lisinopril 5 MG Tablet PO SCH (08:38)
[2018-04-06] MEDS: Famotidine 20 MG Tablet PO SCH (08:39)
[2018-04-06] MEDS: Atenolol 25 MG Tablet PO SCH (11:12)
--- NOTE | 2018-04-06 12:32 | MB ---
cc: Henrietta Campos MD DATE: 04/06/2018 HISTORY OF PRESENT ILLNESS: Ms. Gonzalez is a 72-year-old white female. This information is taken from her chart as she is a little confused and short of breath in the intensive care unit. She has a history of small cell lung cancer, has been treated with chemotherapy, although I do not find those specific records in her chart documents. She also has a history of COPD and was actually admitted to this hospital initially for depression and suicidal ideation. She was then transferred to the intensive care unit when a [employer] was called several days ago. She required intubation and a short period of mechanical ventilation and inotropic support. It was thought that she may have aspirated. She was extubated, did quite well clinically and was transferred back to psychiatry yesterday. On initial evaluation by the medical team, who picked her up there, she was noted to have swelling of the legs and the upper extremities. She then became more short of breath. A CT of her chest was done and she had pulmonary embolism and Dopplers of her legs and arms were done and she also had extensive thromboses in the extremity vessels. She was transferred back to the intensive care unit and started on heparin. Overnight, she has been short of breath and congested. At present, she is a little confused, but she is awake and alert. O2 saturations on 4 liters of oxygen are 96%. She has been on antibiotics for suspected aspiration, including Zosyn and vancomycin. She does have a history of chronic obstructive pulmonary disease, but it is not clear to me what her prior smoking history was. At the present time, she has no complaints. Denies chest pain. She has had no hemoptysis recorded. Cough has been minimal. PAST MEDICAL HISTORY: In addition to lung cancer and COPD, she has had rheumatoid arthritis, hypertension, coronary artery disease. PAST SURGICAL HISTORY: No prior surgeries recorded. FAMILY HISTORY: Reviewed in the EMR. SOCIAL HISTORY: No recorded alcohol abuse history. MEDICATIONS: Reviewed in the EMR. REVIEW OF SYSTEMS: Limited due to the patient's clinical status. PHYSICAL EXAMINATION: VITAL SIGNS: Temperature 97 degrees, blood pressure 130/70, pulse is 90-100, respirations are 18-22, O2 saturation 96% on 4 liters. HEENT: Sclerae are pale. Mucous membranes are a little dry. NECK: Veins are not distended. CHEST: She has scattered rhonchi in both lungs with scattered wheezes. HEART: Regular rhythm. No harsh murmur. ABDOMEN: Soft. EXTREMITIES: 1+ peripheral edema in upper and lower extremities. IMAGING STUDIES: CT as noted above. LABORATORY DATA: White count is 12,000; hemoglobin is 9. APTT is 53. Arterial blood gas on 4 liters: Her pO2 was 105 with a pH of 7.4 and a pCO2 of 33. BUN is 25 with a creatinine of 0.8 and BNP is 100. DISCUSSION: Ms. Gonzalez presented with depression and suicidal ideation. She had an episode of hypotension and respiratory failure, which cleared fairly quickly and was thought to be possibly due to aspiration. However, yesterday upon transfer back to the psychiatric unit, she had more shortness of breath, increasing edema and has documented extensive thromboses in the upper and lower extremities and the lung. She is now on IV heparin infusion. Apparently has underlying chronic obstructive pulmonary disease as well, is quite congested, so we will continue her aerosol treatments, IV corticosteroids and antibiotics. Decision has been made not to resuscitate and a palliative care consult is in place. I have also ordered p.r.n. Ativan for anxiety and shortness of breath. R. MD ISABEL Choe/AMIE , 12:07 PM , 12:31 PM
--- NOTE | 2018-04-06 16:23 | P.HP ---
History of Present Illness Primary Care Physician: No Primary Care Physician Chief Complaint: Shortness of breath History of Present Illness: Ms. Gonzalez is a 72 year old female with a history of lung cancer, COPD who was transferred back to ICU due to shortness of breath and radiological finding of DVT and PE on 04/06/2018. Patient was admitted to psychiatric unit in the late March 2018 due to suicidal ideation and depression. During initial psychiatric admission, rapid response was called due to respiratory failure. Patient was managed in the ICU and required short period of mechanical ventilation and inotropic support. There was some concern about aspiration. Patient was transferred back to psychiatric unit on 04/05/2018. She was noted to have upper extremity and lower extremity edema. She was also dyspneic. CT PE study as well as Doppler studies showed extensive thrombosis. She was subsequently transferred back to ICU and started on heparin drip. Pulmonology and palliative care were consulted. At the time of this interview, patient is not very responsive. She wakes up on verbal commands but does not talk much. She follows commands minimally. Per chart review, patient is DNR. - Diagnosis (1) Pulmonary embolism (2) Lower extremity deep venous thrombosis (3) COPD (chronic obstructive pulmonary disease) Inpatient Certification: I certify that the inpatient services were ordered in accordance with Medicare regulations governing the order. This includes certification that hospital inpatient services are reasonable and necessary and in the case of services not specified as inpatient-only under 42 CFR 419.22(n), that they are appropriately provided as inpatient services in accordance to with the 2-midnight benchmark under 43 CFR 412.3(e) Estimated Total Length of Stay (Days): 3 Plans for Post Hospital Care: Not yet determined [facility] - History History Provided By: Patient - Medical History Medical History: Medical History (Last Reviewed 04/06/18 @ 07:07 by Nawaf Beckford) Rheumatoid arthritis (Acute) High cholesterol (Acute) Hypertension (Acute) Coronary artery disease (Acute) Lung cancer (Acute) COPD (chronic obstructive pulmonary disease) (Acute) - Surgical History Surgical History: Surgical History (Last Reviewed 04/06/18 @ 07:07 by Nawaf Beckford) No history of previous surgery - Family History Family History: Family History (Last Updated 04/01/18 @ 14:28 by BERNARD Almeida) Mother Family history of diabetes mellitus Coronary artery disease - Tobacco History Second Hand Smoke Exposure: No Smoking Status: Former smoker Tobacco Type: Cigarettes Packs Per Day: 1 Cigarettes Per Day: 1 Years Smoked: 2 years: 100 - Alcohol History How Often Do You Have a Drink Containing Alcohol: Never - Substance Use History Substance History: No History of Abuse - Travel History History of Recent Travel: No Medications and Allergies Active Medications: Active Medications Acetaminophen (Tylenol) 650 mg PO Q6H PRN PRN Reason: PAIN 1-10 AND/OR FEVER >101F Last Admin: 04/05/18 21:41 Dose: 650 mg Al Hydroxide/Mg Hydroxide (Milk Of Magnradha Liq) 30 ml PO Q12H PRN PRN Reason: Mild Constipation Albuterol (Albuterol Neb (Prn)) 2.5 mg NEB Q2HR NEB PRN PRN Reason: SHORTNESS OF BREATH/WHEEZING Albuterol (Duoneb Neb (Helio)) 1 ampul NEB Q4HR NEB HELIO Last Admin: 04/06/18 07:45 Dose: 1 ampul Albuterol (Duoneb Neb (Prn)) 1 ampul NEB Q4HR NEB PRN PRN Reason: SOB/Wheezing Atenolol (Tenormin) 12.5 mg PO DAILY [facility] Last Admin: 04/06/18 11:12 Dose: 12.5 mg Atorvastatin Calcium (Lipitor) 10 mg PO HS [facility] Last Admin: 04/05/18 21:32 Dose: 10 mg Bisacodyl (Dulcolax Supp) 10 mg RECTAL DAILY PRN PRN Reason: SEVERE CONSITIPATION Chlorhexidine Gluconate (Chlorhexidine 2% Cloth) 3 pack TOPICAL DAILY@0400 [facility] Stop: 04/11/18 03:59 Last Admin: 04/06/18 04:18 Dose: 3 pack Chlorhexidine Gluconate (Chlorhexidine 2% Cloth) 3 pack TOPICAL DAILY@0400 PRN PRN Reason: Extra cloth needed Stop: 04/11/18 03:59 Dextrose (D50w Vial) 50 ml IV.PUSH UNSCH PRN PRN Reason: PER HYPOGLYCEMIA PROTOCOL Famotidine (Pepcid) 10 mg PO BID [facility] Glucagon (Glucagon Inj) 1 mg OTHER PRN PRN PRN Reason: for Hypoglycemia Protocol Piperacillin/Tazobactam/Dextrose (Zosyn 4.5 Gm Premix) 4.5 gm in 100 mls @ 200 mls/hr IV.SIG Q6H [facility] Last Admin: 04/06/18 10:05 Dose: 200 mls/hr Heparin Sodium/Dextrose (Heparin/D5w 25,000 U/250 Ml) 25,000 unit in 250 mls @ 11 mls/hr IV.CONT TITRATE PRN; Protocol PRN Reason: Per Protocol Last Titration: 04/06/18 05:14 Dose: 700 units/hr, 7 mls/hr Potassium Chloride (Kcl 40 Meq Premix Inj) 40 meq in 100 mls @ 25 mls/hr IV.SIG Q4H [facility] Stop: 04/06/18 23:09 Insulin Aspart (Novolog Insulin Suppl Scale Inj) 0 unit SQ ACHS [facility]; Protocol Last Admin: 04/06/18 08:00 Dose: 1 unit Lactulose (Lactulose Liq) 30 ml PO DAILY PRN PRN Reason: SEVERE CONSITIPATION Lisinopril (Prinivil) 2.5 mg PO DAILY [facility] Last Admin: 04/06/18 08:38 Dose: 2.5 mg Lorazepam (Ativan Inj) 0.5 mg IV.PUSH Q6H PRN PRN Reason: AGITATION AND/OR HALLUCINATION Methylprednisolone Sodium Succinate (Solumedrol Inj) 60 mg IV.PUSH Q6H [facility] Last Admin: 04/06/18 08:38 Dose: 60 mg Miscellaneous (Pill Splitter) 1 each OTHER UNSCH PRN PRN Reason: SEE COMMENTS Morphine Sulfate (Morphine Inj) 2 mg IV.PUSH Q4H PRN PRN Reason: Pain 4-10 Ondansetron HCl (Zofran Inj) 4 mg IV.PUSH Q6H PRN PRN Reason: NAUSEA OR VOMITING Senna/Docusate Sodium (Lilly-Colace) 1 tab PO BID [facility] Last Admin: 04/06/18 08:38 Dose: 1 tab Sennosides (Senokot) 17.2 mg PO Q12H PRN PRN Reason: Moderate Constipation Sodium Chloride (Ns Flush) 2 ml IV.FLUSH BID [facility] Last Admin: 04/05/18 21:33 Dose: 2 ml Sodium Chloride (Ns Flush) 2 ml IV.FLUSH PRN PRN PRN Reason: FLUSH AFTER USING IV ACCESS Temazepam (Restoril) 15 mg PO HS PRN PRN Reason: INSOMNIA Last Admin: 04/06/18 00:47 Dose: 15 mg Allergies Allergy/AdvReac Type Severity Reaction Status Date / Time Sulfa (Sulfonamide Allergy Severe Anaphylaxis Verified 03/21/18 05:08 Antibiotics) [facility] [place] AdvReac Intermediate Nausea/Vomi Uncoded 03/21/18 05:07 ting Home Medications Medication Instructions Recorded Confirmed Type aspirin 81 mg PO DAILY 03/30/18 03/30/18 History atenolol 12.5 mg PO DAILY 03/30/18 03/30/18 History atorvastatin 10 mg PO HS 03/30/18 03/30/18 History lisinopril 2.5 mg PO DAILY 03/30/18 03/30/18 History Exam Vital signs: Vital Signs 04/05/18 20:00 04/05/18 20:37 04/05/18 21:00 Temperature 98.1 F Pulse Rate 104 H 108 H 104 H Respiratory Rate 29 H 41 H 27 H Blood Pressure 141/78 H 154/77 H Pulse Oximetry 95 96 94 L 04/05/18 22:00 04/05/18 22:25 04/05/18 23:00 Temperature Pulse Rate 100 H 96 H Respiratory Rate 23 22 32 H Blood Pressure 128/72 153/73 H Pulse Oximetry 94 L 96 04/05/18 23:56 04/06/18 00:00 04/06/18 01:00 Temperature 98.2 F Pulse Rate 96 H 96 H 103 H Respiratory Rate 18 30 H 28 H Blood Pressure 158/86 H 131/70 Pulse Oximetry 100 93 L 04/06/18 02:00 04/06/18 03:00 04/06/18 03:38 Temperature Pulse Rate 97 H 98 H 90 Respiratory Rate 28 H 31 H 14 Blood Pressure 143/70 H 127/101 H Pulse Oximetry 96 94 L 04/06/18 04:00 04/06/18 04:39 04/06/18 05:00 Temperature 98.7 F Pulse Rate 124 H 93 H 92 H Respiratory Rate 19 26 H 23 Blood Pressure 131/67 131/67 137/72 Pulse Oximetry 96 94 L 94 L 04/06/18 06:00 04/06/18 07:00 04/06/18 07:41 Temperature Pulse Rate 103 H 89 Respiratory Rate 19 32 H Blood Pressure 153/75 H 144/67 H Pulse Oximetry 95 96 04/06/18 07:45 04/06/18 08:00 07/07/18 10:00 Temperature 98.4 F Pulse Rate 96 H 110 H 108 H Respiratory Rate 22 Blood Pressure 144/67 H Pulse Oximetry 97 04/06/18 12:00 Temperature 98 F Pulse Rate 93 H Respiratory Rate 22 Blood Pressure 143/93 H Pulse Oximetry Intake & Output 04/05/18 04/06/18 04/06/18 18:59 06:59 18:59 Intake Total 200 / 200 Output Total 1300 / 1300 Balance -1100 / -1100 Weight 56.5 kg Intake: IV 200 / 200 Zosyn 4.5 GM Premix 4.5 gm In 200 / 200 100 ml @ 200 mls/hr IV.SIG Q6H [facility] Rx#:[id number] Output: Urine Amount (Catheter) 1300 / 1300 Indwelling Urethral Catheter 1300 / 1300 Other: Date of Last Bowel Movement 04/06/18 04/06/18 # Bowel Movements 1 Weight On Admission 59.5 kg Narrative: GENERAL: Alert, wakes up on verbal commands, does not talk much. No acute distress. On nasal cannula. SKIN: No rashes, ecchymoses or lesions. Warm and dry. HEAD: Atraumatic. Normocephalic. No temporal or scalp tenderness. EYES: Pupils equal round and reactive. No injection or drainage. ENT: Nose without bleeding, purulent drainage or septal hematoma. Airway patent. NECK: Trachea midline. No lymphadenopathy. Supple, nontender, no meningeal signs. CARDIOVASCULAR: Regular rate and rhythm without murmurs, gallops, or rubs. No JVD. RESPIRATORY: Poor air entry, coarse diffuse breath sounds. GASTROINTESTINAL: Abdomen soft, non-tender, nondistended. No guarding. MUSCULOSKELETAL: Extremities without clubbing, cyanosis, or edema. NEUROLOGICAL: Unable to do neuro assessment. Results - Labs CBC & Chem 7: 04/06/18 04:20 04/06/18 04:20 Labs: Laboratory Results - last 24 hr 04/05/18 04/05/18 04/05/18 20:20 21:52 23:00 WBC 8.0 RBC 2.97 L Hgb 9.4 L Hct 27.7 L MCV 93.3 MCH 31.7 MCHC 34.0 RDW 13.8 Plt Count 208 MPV 7.4 Neut % (Auto) Lymph % (Auto) Caldwell % (Auto) Eos % (Auto) Baso % (Auto) Neut # (Auto) Lymph # (Auto) Caldwell # (Auto) Eos # (Auto) Baso # (Auto) WBC Differential Differential Comment PT INR APTT Sodium Potassium Chloride Carbon Dioxide Anion Gap BUN Creatinine Estimated GFR POC Glucose 236 H Random Glucose Calcium Total Bilirubin AST ALT Alkaline Phosphatase Troponin I Total Protein Albumin Nasal Screen MRSA (PCR) Not detected 04/05/18 04/05/18 04/06/18 23:00 23:00 00:20 WBC RBC Hgb Hct MCV MCH MCHC RDW Plt Count MPV Neut % (Auto) Lymph % (Auto) [place]dwell % (Auto) Eos % (Auto) Baso % (Auto) Neut # (Auto) Lymph # (Auto) [place]dwell # (Auto) Eos # (Auto) Baso # (Auto) WBC Differential Differential Comment PT 11.8 H INR 1.2 APTT 148.7 H* D 155.7 H* Sodium Potassium Chloride Carbon Dioxide Anion Gap BUN Creatinine Estimated GFR POC Glucose Random Glucose Calcium Total Bilirubin AST ALT Alkaline Phosphatase Troponin I 0.06 H Total Protein Albumin Nasal Screen MRSA (PCR) 04/06/18 04/06/18 04/06/18 04:20 04:20 04:20 WBC 6.7 RBC 3.00 L Hgb 9.4 L Hct 27.9 L MCV 93.1 MCH 31.2 MCHC 33.5 RDW 14.0 Plt Count 197 MPV 7.5 Neut % (Auto) 93.3 H Lymph % (Auto) 4.8 L Caldwell % (Auto) 1.8 Eos % (Auto) 0.0 Baso % (Auto) 0.1 Neut # (Auto) 6.2 Lymph # (Auto) 0.3 L Caldwell # (Auto) 0.1 Eos # (Auto) 0.0 Baso # (Auto) 0.0 WBC Differential . Differential Comment Auto diff final PT INR APTT 24.6 D Sodium 147 H Potassium 2.4 L* Chloride 110 H Carbon Dioxide 26.2 Anion Gap 11 BUN 27 H Creatinine 0.95 Estimated GFR 58 L POC Glucose Random Glucose 183 H Calcium 9.2 Total Bilirubin 0.6 AST 51 H ALT 86 H Alkaline Phosphatase 124 H Troponin I Total Protein 5.9 L D Albumin 1.8 L Nasal Screen MRSA (PCR) 04/06/18 04/06/18 11:00 14:05 WBC RBC Hgb Hct MCV MCH MCHC RDW Plt Count MPV Neut % (Auto) Lymph % (Auto) Caldwell % (Auto) Eos % (Auto) Baso % (Auto) Neut # (Auto) Lymph # (Auto) Caldwell # (Auto) Eos # (Auto) Baso # (Auto) WBC Differential Differential Comment PT INR APTT 87.2 H D Sodium Potassium Chloride Carbon Dioxide Anion Gap BUN Creatinine Estimated GFR POC Glucose 134 H Random Glucose Calcium Total Bilirubin AST ALT Alkaline Phosphatase Troponin I Total Protein Albumin Nasal Screen MRSA (PCR) Caprini VTE Risk Assessment Caprini VTE Risk Assessment: Moderate/High Risk (score >= 2) Caprini Risk Assessment Model: Point Value = 1 Point Value = 2 Point Value = 3 Point Value = 5 Age 41-60 Minor surgery BMI > 25 kg/m2 Swollen legs Varicose veins or History of unexplained or recurrent spontaneous Oral contraceptives or hormone replacement Sepsis (< 1 month) Serious lung disease, including pneumonia (< 1 month) Abnormal pulmonary function Acute myocardial infarction Congestive heart failure (< 1 month) History of inflammatory bowel disease Medical patient at bed rest Age 61-74 Arthroscopic surgery Major open surgery (> 45 min) Laparoscopic surgery (> 45 min) Malignancy Confined to bed (> 72 hours) Immobilizing plaster cast Central venous access Age >= 75 History of VTE Family history of VTE Factor V Leiden Prothrombin [id number] Lupus anticoagulant Anticardiolipin antibodies Elevated serum homocysteine Heparin-induced thrombocytopenia Other congenital or acquired thrombophilia Stroke (< 1 month) Elective arthroplasty Hip, pelvis, or leg fracture Acute spinal cord injury (< 1 month) Prophylaxis Regimen: Total Risk Factor Score Risk Level Prophylaxis Regimen 0-1 Low Early ambulation 2 Moderate Order ONE of the following: *Sequential Compression Device (SCD) *Heparin 5000 units SQ BID 3-4 Higher Order ONE of the following medications: *Heparin 5000 units SQ TID *Enoxaparin/Lovenox 40 mg SQ daily (WT < 150 kg, CrCl > 30 mL/min) *Enoxaparin/Lovenox 30 mg SQ daily (WT < 150 kg, CrCl > 10-29 mL/min) *Enoxaparin/Lovenox 30 mg SQ BID (WT < 150 kg, CrCl > 30 mL/min) AND/OR *Sequential Compression Device (SCD) 5 or more Highest Order ONE of the following medications: *Heparin 5000 units SQ TID (Preferred with Epidurals) *Enoxaparin/Lovenox 40 mg SQ daily (WT < 150 kg, CrCl > 30 mL/min) *Enoxaparin/Lovenox 30 mg SQ daily (WT < 150 kg, CrCl > 10-29 mL/min) *Enoxaparin/Lovenox 30 mg SQ BID (WT < 150 kg, CrCl > 30 mL/min) AND *Sequential Compression Device (SCD) Assessment and Plan - Assessment (1) Pulmonary embolism Code(s): I26.99 - Other pulmonary embolism without acute cor pulmonale Status : Acute (2) Lower extremity deep venous thrombosis Code(s): I82.409 - Acute embolism and thrombosis of unspecified deep veins of unspecified lower extremity Status: Acute (3) COPD (chronic obstructive pulmonary disease) Code(s): J44.9 - Chronic obstructive pulmonary disease, unspecified Status: Acute - Plan Ms. Gonzalez is a 72-year-old female with a history of COPD, lung cancer who was originally admitted to the psychiatric unit for depression and suicidal ideation. She was subsequently admitted to ICU briefly due to respiratory failure. She was sent back to psychiatric unit when she was noted to have lower extremity edema as well as dyspnea. Workup including Doppler ultrasound as well as CT PE study showed lower extremity DVT as well as PE. Patient was subsequently brought back to ICU and started on heparin drip. Pulmonology was consulted. Palliative care is also consulted. Pulmonary embolism Lower extremity DVT History of lung cancer Severe pulmonary hypertension -Continue heparin drip. -Palliative care is involved. Patient would likely benefit from hospice evaluation. -Continue supplemental oxygen to keep O2 saturation around 90%. -Echo shows pulmonary hypertension around 87 mmHg. Severe hypokalemia -Potassium 2.4. Will check magnesium level. -Replace potassium with IV potassium chloride -BMP in the morning. Hypertension Hyperlipidemia -Continue lisinopril, Lipitor. DNR. Heparin drip.
[2018-04-06] MEDS: Potassium Chlor 40 mEq Premix 40 MEQ/100 ML PIGGYBACK IV.SIG SCH ×2 (18:08→20:41)
[2018-04-06] MEDS ORDERED: Famotidine 20 MG Tablet PO SCH (21:00)
[2018-04-07] MEDS: Piperacil/Tazo 4.5 GM Premix 4.5 GM/100 ML BAG IV.SIG SCH ×3 (03:05→15:37)
[2018-04-07] MEDS: MethylPREDNISolone Sod Succinate Inj 125 MG/2 ML Vial IV.PUSH SCH ×3 (03:05→14:24)
[2018-04-07] MEDS ORDERED: Metoprolol Inj 5 MG/5 ML Vial IV.PUSH ONE (05:00)
[2018-04-07] MEDS: Morphine Inj 4 MG/ML Vial IV.PUSH PRN ×4 (05:12→20:12)
[2018-04-07] MEDS ORDERED: hydrALAZINE HCl Inj 20 MG/ML Vial IV.PUSH ONE (05:32)
[2018-04-07 06:16] LABS: Hematocrit 28.4 % (35.0-46.0); Hemoglobin 9.4 gm/dL (11.6-15.3); Mean Corpuscular Hemoglobin 30.8 pg (27.0-34.0); Mean Corpuscular Volume 93.4 fL (80.0-100.0); Mean Platelet Volume 7.7 fL (7.0-11.0); Platelet Count 262 th/mm3 (150-450); Red Blood Count 3.04 mil/mm3 (4.00-5.30); Red Cell Distribution Width 13.6 % (11.6-17.2); White Blood Count 12.3 th/mm3 (4.0-11.0)
[2018-04-07 08:35] VITALS: RESP 24; O2SAT 96
[2018-04-07] MEDS: Lisinopril 5 MG Tablet PO SCH (09:30)
[2018-04-07] MEDS: Atenolol 25 MG Tablet PO SCH (09:31)
[2018-04-07] MEDS: Senna/Docusate Sodium 8.6/50 MG Tablet PO SCH (09:31)
--- NOTE | 2018-04-07 15:17 | P.PN ---
Physical Exam Vital signs: Vital Signs 04/06/18 16:00 04/06/18 16:21 04/06/18 17:00 Temperature 98.6 F Pulse Rate 91 H 92 H 94 H Respiratory Rate 28 H 22 28 H Blood Pressure 160/99 H 169/72 H Pulse Oximetry 97 94 L 04/06/18 18:00 04/06/18 19:00 04/06/18 20:00 Temperature Pulse Rate 141 H 96 H 95 H Respiratory Rate 22 30 H 29 H Blood Pressure 168/75 H 176/75 H 167/73 H Pulse Oximetry 95 95 97 04/06/18 20:40 04/06/18 21:00 04/06/18 22:00 Temperature 98.4 F Pulse Rate 100 H 97 H Respiratory Rate 35 H 31 H Blood Pressure 166/108 H 170/127 H Pulse Oximetry 96 96 94 L 04/06/18 22:29 04/06/18 23:00 04/06/18 23:01 Temperature Pulse Rate 101 H 97 H 97 H Respiratory Rate 35 H 35 H 36 H Blood Pressure 121/60 119/75 Pulse Oximetry 96 95 95 04/07/18 00:00 04/07/18 02:00 04/07/18 04:00 Temperature 98.2 F 98.2 F Pulse Rate 87 90 97 H Respiratory Rate 22 22 Blood Pressure 154/80 H 180/82 H Pulse Oximetry 96 96 04/07/18 06:00 04/07/18 06:27 04/07/18 08:00 Temperature 98.4 F Pulse Rate 102 H 96 H 116 H Respiratory Rate 26 H 24 Blood Pressure 150/72 H 153/94 H Pulse Oximetry 93 L 96 04/07/18 10:00 04/07/18 12:00 04/07/18 14:00 Temperature 98 F Pulse Rate 116 H 93 H 96 H Respiratory Rate 24 Blood Pressure 132/66 Pulse Oximetry Intake & Output 04/06/18 04/07/18 04/07/18 18:59 06:59 18:59 Intake Total 200 / 200 400 / 400 Output Total 1300 / 1300 350 / 350 Balance -1100 / -1100 50 / 50 Weight 56.5 kg Intake: IV 200 / 200 400 / 400 Zosyn 4.5 GM Premix 4.5 gm In 200 / 200 200 / 200 100 ml @ 200 mls/hr IV.SIG Q6H [facility] Rx#:[id number] KCl 40 mEq Premix Inj 40 meq In 200 / 200 100 ml @ 25 mls/hr IV.SIG Q4H [facility] Rx#:[id number] Output: Urine Amount (Catheter) 1300 / 1300 350 / 350 Indwelling Urethral Catheter 1300 / 1300 350 / 350 Other: Date of Last Bowel Movement 04/06/18 04/06/18 04/06/18 # Bowel Movements 1 1 - Urinary Catheter Management Indwelling Urethral Catheter Cath placed during this visit: no Results - Labs CBC & Chem 7: 04/07/18 05:50 04/07/18 03:00 Laboratory Results - last 24 hr 04/06/18 04/06/18 04/06/18 04:20 20:34 22:22 WBC RBC Hgb Hct MCV MCH MCHC RDW Plt Count MPV APTT 29.3 D Potassium POC Glucose 148 H Magnesium 1.7 04/07/18 04/07/18 04/07/18 03:00 03:00 05:50 WBC 12.3 H RBC 3.04 L Hgb 9.4 L Hct 28.4 L MCV 93.4 MCH 30.8 MCHC 33.0 RDW 13.6 Plt Count 262 D MPV 7.7 APTT 31.0 H Potassium 3.3 L D POC Glucose Magnesium 04/07/18 04/07/18 10:50 10:50 WBC RBC Hgb Hct MCV MCH MCHC RDW Plt Count MPV APTT 122.3 H* D Potassium POC Glucose 136 H Magnesium Assessment and Plan - Assessment (1) Pulmonary embolism Code(s): I26.99 - Other pulmonary embolism without acute cor pulmonale Status : Acute (2) Lower extremity deep venous thrombosis Code(s): I82.409 - Acute embolism and thrombosis of unspecified deep veins of unspecified lower extremity Status: Acute (3) COPD (chronic obstructive pulmonary disease) Code(s): J44.9 - Chronic obstructive pulmonary disease, unspecified Status: Acute - Plan Ms. Gonzalez is a 72-year-old female with a history of COPD, lung cancer who was originally admitted to the psychiatric unit for depression and suicidal ideation. She was subsequently admitted to ICU briefly due to respiratory failure. She was sent back to psychiatric unit when she was noted to have lower extremity edema as well as dyspnea. Workup including Doppler ultrasound as well as CT PE study showed lower extremity DVT as well as PE. Patient was subsequently brought back to ICU and started on heparin drip. Pulmonology was consulted. Palliative care is also consulted. Pulmonary embolism Lower extremity DVT History of lung cancer Severe pulmonary hypertension -Continue heparin drip. -Palliative care is involved. Patient would likely benefit from hospice evaluation. -Continue supplemental oxygen to keep O2 saturation around 90%. -Echo shows pulmonary hypertension around 87 mmHg. Severe hypokalemia -Potassium 2.4. Will check magnesium level. -Replace potassium with IV potassium chloride -BMP in the morning. Hypertension Hyperlipidemia -Continue lisinopril, Lipitor. DNR. Heparin drip.
[2018-04-07] MEDS ORDERED: Labetalol HCl Inj 100 MG/20 ML Vial IV.PUSH ONE (15:27)
[2018-04-07] MEDS ORDERED: Labetalol HCl Inj 100 MG/20 ML Vial IV.PUSH PRN (15:28)
[2018-04-07] MEDS ORDERED: Labetalol HCl Inj 100 MG/20 ML Vial ONE (15:28)
[2018-04-07 17:03] VITALS: BP 97/52; PULSE 80; TEMP 97.8
--- NOTE | 2018-04-07 21:02 | P.DS ---
Date of admission: 04/05/18 19:12 Primary care physician: No Primary Care Physician Brief History from admission: Ms. Gonzalez is a 72 year old female with a history of lung cancer, COPD who was transferred back to ICU due to shortness of breath and radiological finding of DVT and PE on 04/06/2018. Patient was admitted to psychiatric unit in the late March 2018 due to suicidal ideation and depression. During initial psychiatric admission, rapid response was called due to respiratory failure. Patient was managed in the ICU and required short period of mechanical ventilation and inotropic support. There was some concern about aspiration. Patient was transferred back to psychiatric unit on 04/05/2018. She was noted to have upper extremity and lower extremity edema. She was also dyspneic. CT PE study as well as Doppler studies showed extensive thrombosis. She was subsequently transferred back to ICU and started on heparin drip. Pulmonology and palliative care were consulted. At the time of this interview, patient is not very responsive. She wakes up on verbal commands but does not talk much. She follows commands minimally. Per chart review, patient is DNR. DS: Diagnosis - Discharge Diagnosis (1) Pulmonary embolism Status: Acute (2) Lower extremity deep venous thrombosis Status: Acute (3) COPD (chronic obstructive pulmonary disease) Status: Acute DS: Summary Hospital Course: Ms. Gonzalez is a 72-year-old female with a history of COPD, lung cancer who was originally admitted to the psychiatric unit for depression and suicidal ideation. She was subsequently admitted to ICU briefly due to respiratory failure. She was sent back to psychiatric unit when she was noted to have lower extremity edema as well as dyspnea. Workup including Doppler ultrasound as well as CT PE study showed lower extremity DVT as well as PE. Patient was subsequently brought back to ICU and started on heparin drip. Pulmonology was consulted. Palliative care is also consulted. Pulmonary embolism Lower extremity DVT History of lung cancer Severe pulmonary hypertension -Continue heparin drip. -Palliative care is involved. Patient was evaluated by hospice. -Continue supplemental oxygen to keep O2 saturation around 90%. -Echo shows pulmonary hypertension around 87 mmHg. Severe hypokalemia -Potassium 2.4. Potassium improved to 3.3 after replacement. Hypertension Hyperlipidemia -Continue lisinopril, Lipitor. DNR. Heparin drip. Overall, patient's clinical condition continued to decline. She was evaluated by hospice was determined to be hospice appropriate. She was discharged to hospice care center on 04/07/2018. - Time Spent with Patient Total time spent providing and/or coordinating discharge services: Less than 30 minutes - Quality: VTE Deep Vein Thrombosis/Pulmonary Embolism Present on Admission: Yes Exam Vital signs: Vital Signs 04/06/18 21:00 04/06/18 22:00 04/06/18 22:29 Temperature 98.4 F Pulse Rate 100 H 97 H 101 H Respiratory Rate 35 H 31 H 35 H Blood Pressure 166/108 H 170/127 H 121/60 Pulse Oximetry 96 94 L 96 04/06/18 23:00 04/06/18 23:01 04/07/18 00:00 Temperature 98.2 F Pulse Rate 97 H 97 H 87 Respiratory Rate 35 H 36 H 22 Blood Pressure 119/75 154/80 H Pulse Oximetry 95 95 96 04/07/18 02:00 04/07/18 04:00 04/07/18 06:00 Temperature 98.2 F Pulse Rate 90 97 H 102 H Respiratory Rate 22 Blood Pressure 180/82 H Pulse Oximetry 96 04/07/18 06:27 04/07/18 08:00 04/07/18 10:00 Temperature 98.4 F Pulse Rate 96 H 116 H 116 H Respiratory Rate 26 H 24 Blood Pressure 150/72 H 153/94 H Pulse Oximetry 93 L 96 04/07/18 12:00 04/07/18 14:00 04/07/18 16:00 Temperature 98 F 97.8 F Pulse Rate 93 H 96 H 80 Respiratory Rate 24 24 Blood Pressure 132/66 97/52 L Pulse Oximetry 04/07/18 18:00 Temperature Pulse Rate 80 Respiratory Rate Blood Pressure Pulse Oximetry Intake & Output 04/07/18 04/07/18 04/08/18 06:59 18:59 06:59 Intake Total 400 / 400 100 / 100 Output Total 350 / 350 350 / 350 Balance 50 / 50 -250 / -250 Weight 56.5 kg Intake: IV 400 / 400 100 / 100 Zosyn 4.5 GM Premix 4.5 gm In 200 / 200 100 / 100 100 ml @ 200 mls/hr IV.SIG Q6H JOSAFAT Rx#:[id number] KCl 40 mEq Premix Inj 40 meq In 200 / 200 100 ml @ 25 mls/hr IV.SIG Q4H JOSAFAT Rx#:[id number] Output: Urine Amount (Catheter) 350 / 350 350 / 350 Indwelling Urethral Catheter 350 / 350 350 / 350 Other: Date of Last Bowel Movement 04/06/18 04/06/18 # Bowel Movements 1 1 Results Procedures completed during hospitalization: None. Labs on day of discharge: Labs from last 24 hours 04/07/18 04/07/18 04/07/18 14:50 10:50 10:50 WBC RBC Hgb Hct MCV MCH MCHC RDW Plt Count MPV APTT 78.1 H D 122.3 H* D Potassium POC Glucose 136 H 04/07/18 04/07/18 04/07/18 05:50 03:00 03:00 WBC 12.3 H RBC 3.04 L Hgb 9.4 L Hct 28.4 L MCV 93.4 MCH 30.8 MCHC 33.0 RDW 13.6 Plt Count 262 D MPV 7.7 APTT 31.0 H Potassium 3.3 L D POC Glucose 04/06/18 04/06/18 22:22 20:34 WBC RBC Hgb Hct MCV MCH MCHC RDW Plt Count MPV APTT 29.3 D Potassium POC Glucose 148 H Discharge Plan - Discharge Disposition Patient Disposition: [facility] Hospice/Med Facility - Discharge Condition Condition: Serious - Discharge Order Discharge Orders: Discharge Order (Routine); Ordered 04/07/18 Ordered By: Dre Arizmendi - Discharge Details Anticipated Discharge Date: 04/07/18 - Physicians Team Primary Care Provider: Primary Bruna Holder Attending Provider: Dre Arizmendi Other Providers: Austin Rodriguez MD ; Omar Campos MD ; Jelani Smyth MD - Rxs /Orders / Referrals /Forms Prescriptions: Continue aspirin 81 mg Tablet,Chewable 81 mg PO DAILY atenolol 25 mg Tablet 12.5 mg PO DAILY atorvastatin 10 mg Tablet 10 mg PO HS lisinopril 2.5 mg Tablet 2.5 mg PO DAILY Referrals: Primary Care Bruna Aldridge [Primary Care Provider] - See Instructions
== END 2018-04-07 20:40 | disposition hospice, inpatient (51) ==
LOC: HIMC 19:12
PROVIDERS: ADMIT Hospitalist; ATTEND Hospitalist
DX: I82.409 Acute embolism and thrombosis of unspecified deep veins of unspecified lower extremity; M06.9 Rheumatoid arthritis, unspecified; Z92.21 Personal history of antineoplastic chemotherapy; Z66 Do not resuscitate; Z51.5 Encounter for palliative care; Z87.891 Personal history of nicotine dependence; I26.99 Other pulmonary embolism without acute cor pulmonale; F32.9 Major depressive disorder, single episode, unspecified; E87.6 Hypokalemia; E78.00 Pure hypercholesterolemia, unspecified; Z85.118 Personal history of other malignant neoplasm of bronchus and lung; J44.9 Chronic obstructive pulmonary disease, unspecified; I25.10 Atherosclerotic heart disease of native coronary artery without angina pectoris; I10 Essential (primary) hypertension